=== PATIENT | female | born 1970 | race African-American/Black ===

== ENCOUNTER 2017-01-11 12:43 | Emergency (ER) | payer MEDICAID, OTHER ==
[~2017-01-11] VITALS: Ht 160 cm; Wt 98.0 kg
[~2017-01-11 12:43] MED LIST: SUMA25 PO
[2017-01-11 12:45] VITALS: BP 150/93; PULSE 74; RESP 15; TEMP 98.3; O2SAT 99
--- NOTE | 2017-01-11 12:51 | PD ---
Physical Exam Time Seen by Provider: 12:49 Narrative 46 y/o female presents for evaluation of 3 day duration of headache. Endorses mild nausea/vomiting associated with this. Vital signs reviewed. Seen at triage desk. Awaiting bed placement. Data Data Last Documented VS Vital Signs Date Time Temp Pulse Resp B/P Pulse Ox O2 Delivery O2 Flow Rate FiO2 01/11/17 12:45 98.3 74 15 150/93 99 MDM Medical Record Reviewed: Yes Supervised Visit with NAM: Mustapha Flores January 11, 2017 12:51
--- NOTE | 2017-01-11 13:43 | PD ---
HPI Chief Complaint: Headache Time Seen by Provider: 13:43 Travel History International Travel<30 days: No Contact w/Intl Traveler<30days: No Traveled to known affect area: No History of Present Illness HPI 46-year-old female came to the emergency room with history of headache for 3 days. He points her headache more to the left temporal area. No associated nausea or vomiting. No fever or chills. Vital signs were relatively stable. Patient says she used to get migraines many years ago up until this started again. No neurologic deficit. Patient does not radiate to any spot. No aggravating or relieving factors. Patient has been taking Advil at home for the pain. Patient said her pain was 7 out of 10 currently. [facility] Past Medical History Narrative Medical List of her past medical, surgical, social and family history was reviewed from the nursing note. Anemia: Yes Diminished Hearing: No Headaches: Yes Musculoskeletal: Yes (THORACIC AND LUMBAR INJURY FEW YEARS AGO ON THE JOB) Neurologic: Yes Immunizations Current: No ?: Not LMP: 01/08/17 : 6 Para: 6 Tubal Ligation: Yes Social History Alcohol Use: No Tobacco Use: No Substance Use: No Allergies-Medications (Allergen,Severity, Reaction): Coded Allergies: Amoxicillin (Verified Allergy, Severe, Anaphylaxis, 01/11/17) Iodine (Verified Allergy, Severe, RASH, 01/11/17) Peanut (Verified Allergy, Severe, SOB, 01/11/17) Penicillin (Verified Allergy, Severe, RASH, 01/11/17) Shellfish (Verified Allergy, Severe, RASH, 01/11/17) Comments List of her allergies reviewed from the nursing note. Reported Meds & Prescriptions Reported Meds & Active Scripts Active Imitrex 25 Mg Tab (Sumatriptan Succinate) 25 Mg Tab 25 Mg PO ONCE PRN Narrative Medication List of her home medications reviewed from the nursing note. Review of Systems Except as stated in HPI: all other systems reviewed are Neg Physical Exam Narrative GENERAL: Awake, alert, obese, no obvious distress SKIN: Focused skin assessment warm/dry. HEAD: Atraumatic. Normocephalic. EYES: Pupils equal and round. No scleral icterus. No injection or drainage. ENT: No nasal bleeding or discharge. Mucous membranes pink and moist. NECK: Trachea midline. No JVD. No signs of meningismus. CARDIOVASCULAR: Regular rate and rhythm. No murmur appreciated. RESPIRATORY: No accessory muscle use. Clear to auscultation. Breath sounds equal bilaterally. GASTROINTESTINAL: Abdomen soft, non-tender, nondistended. Hepatic and splenic margins not palpable. MUSCULOSKELETAL: No obvious deformities. No clubbing. No cyanosis. No edema. NEUROLOGICAL: Awake and alert. No obvious cranial nerve deficits. Motor grossly within normal limits. Normal speech. PSYCHIATRIC: Appropriate mood and affect; insight and judgment normal. Data Data Last Documented VS Vital Signs Date Time Temp Pulse Resp B/P Pulse Ox O2 Delivery O2 Flow Rate FiO2 01/11/17 13:49 69 16 162/94 100 Room Air 01/11/17 12:45 98.3 Orders Complete Blood Count With Diff (01/11/17 13:47) Basic Metabolic Panel (Bmp) (01/11/17 13:47) Ct Brain W/O Iv Contrast(Rout) (01/11/17 13:47) Ecg Monitoring (01/11/17 13:47) Iv Access Insert/Monitor (01/11/17 13:47) Oximetry (01/11/17 13:47) Sodium Chloride 0.9% Flush (Ns Flush) (01/11/17 14:00) Prochlorperazine Inj (Compazine Inj) (01/11/17 14:00) Sodium Chlor 0.9% 1000 Ml Inj (Ns 1000 M (01/11/17 13:47) Labs Laboratory Tests Test 01/11/17 13:58 White Blood Count 5.1 TH/MM3 Red Blood Count 4.30 MIL/MM3 Hemoglobin 11.1 GM/DL Hematocrit 33.7 % Mean Corpuscular Volume 78.2 FL Mean Corpuscular Hemoglobin 25.8 PG Mean Corpuscular Hemoglobin 33.0 % Concent Red Cell Distribution Width 14.8 % Platelet Count 338 TH/MM3 Mean Platelet Volume 8.5 FL Neutrophils (%) (Auto) 55.0 % Lymphocytes (%) (Auto) 35.2 % Monocytes (%) (Auto) 6.8 % Eosinophils (%) (Auto) 2.0 % Basophils (%) (Auto) 1.0 % Neutrophils # (Auto) 2.8 TH/MM3 Lymphocytes # (Auto) 1.8 TH/MM3 Monocytes # (Auto) 0.3 TH/MM3 Eosinophils # (Auto) 0.1 TH/MM3 Basophils # (Auto) 0.0 TH/MM3 CBC Comment DIFF FINAL Differential Comment Sodium Level 139 MEQ/L Potassium Level 3.9 MEQ/L Chloride Level 105 MEQ/L Carbon Dioxide Level 28.3 MEQ/L Anion Gap 6 MEQ/L Blood Urea Nitrogen 8 MG/DL Creatinine 0.86 MG/DL Estimat Glomerular Filtration 87 ML/MIN Rate Random Glucose 90 MG/DL Calcium Level 8.7 MG/DL MDM Medical Decision Making Medical Screen Exam Complete: Yes Emergency Medical Condition: Yes Medical Record Reviewed: Yes Differential Diagnosis Migraine headache, status migrainous, subarachnoid hemorrhage Narrative Course 2:57 PM blood test results of back and within normal limit. I have ordered a head CT and waiting for the CT to be done and resulted. Although my pretest probability for subarachnoid hemorrhage is very low. I went to reassess her but she is over at the CT currently. 3:[address] scan is within normal limits. I'll discharge her home. Patient told me her headache is down to 1 out of 10. Procedures EKG Prior to Arrival: No Diagnosis Primary Impression: Migraine headache Qualified Code: G43.911 - Intractable migraine with status migrainosus, unspecified migraine type Referrals: Primary Care Physician 3 days Additional Instructions: Please return to the ER if the condition worsens or any other new concerns. Otherwise follow-up with your primary care. Dietary restrictions including no wine, no chocolates, no cheese. Drink lots of fluid and keep herself hydrated. Med/Other Pt SpecificInfo: No Change to Meds Disposition: 01 DISCHARGE HOME Condition: Stable Kate Thomas MD January 11, 2017 13:43
[2017-01-11] MEDS ORDERED: SODIUM CHLOR 0.9% 1000 ML INJ 1,000 ML IV ONE (13:47)
[2017-01-11 13:49] VITALS: BP 162/94; PULSE 69; RESP 16; O2SAT 100
[2017-01-11] MEDS ORDERED: SODIUM CHLORIDE 0.9% FLUSH 10 ML FLUSH IVF PRN (14:00)
[2017-01-11] MEDS ORDERED: PROCHLORPERAZINE INJ 10 MG/2 ML VIAL IVP ONE (14:00)
[2017-01-11 14:27] LABS: AUTOMATED NEUTROPHIL # 2.8 TH/MM3 (1.8-7.7); EOSINOPHIL # 0.1 TH/MM3 (0-0.4); HEMATOCRIT 33.7 % (35.0-46.0); HEMO FLAGS DIFF FINAL; LYMPH % 35.2 % (9.0-44.0); LYMPHOCYTE # 1.8 TH/MM3 (1.0-4.8); MEAN CELL VOLUME 78.2 FL (80.0-100.0); MEAN CORPUSCULAR HEMOGLOBIN 25.8 PG (27.0-34.0); MONO % 6.8 % (0.0-8.0); PLATELET COUNT 338 TH/MM3 (150-450); RED CELL DISTRIBUTION WIDTH 14.8 % (11.6-17.2); WHITE BLOOD COUNT 5.1 TH/MM3 (4.0-11.0)
[2017-01-11 14:41] LABS: BICARBONATE 28.3 MEQ/L (21.0-32.0); POTASSIUM 3.9 MEQ/L (3.5-5.1)
--- NOTE | 2017-01-11 15:21 | RADRPT ---
EXAM DATE/TIME: 01/11/2017 14:57 [facility] COMPARISON: No previous studies available for comparison. INDICATIONS : Frontal Headache, nausea. RADIATION DOSE: 41.08 CTDIvol (mGy) MEDICAL HISTORY : None SURGICAL HISTORY : Tubal ligation. ENCOUNTER: Initial ACUITY: 3 days PAIN SCALE: 5/10 LOCATION: Bilateral cranial TECHNIQUE: Multiple contiguous axial images were obtained of the head. Using automated exposure control and adj ustment of the mA and/or kV according to patient size, radiation dose was kept as low as reasonably a chievable to obtain optimal diagnostic quality images. FINDINGS: CEREBRUM: The ventricles are normal for age. No evidence of midline shift, mass lesion, hemorrhage or acute in farction. No extra-axial fluid collections are seen. POSTERIOR FOSSA: The cerebellum and brainstem are intact. The 4th ventricle is midline. The cerebellopontine angle i s unremarkable. EXTRACRANIAL: The visualized portion of the orbits is intact. SKULL: The calvaria is intact. No evidence of skull fracture. CONCLUSION: Normal examination. Denzel Suárez MD on January 11, 2017 at 15:18 Board Certified Radiologist. This report was verified electronically.
== END 2017-01-11 16:26 | disposition home or self-care (01) ==
LOC: NEPD 12:43
DX: G43.911 Migraine, unspecified, intractable, with status migrainosus (principal); Z86.2 Personal history of diseases of the blood and blood-forming organs and certain disorders involving the immune mechanism; Z87.39 Personal history of other diseases of the musculoskeletal system and connective tissue; Z86.69 Personal history of other diseases of the nervous system and sense organs
CPT/HCPCS: 70450; 80048; 85025; 96361; 96374; 99284; J0780; J7030

== ENCOUNTER 2017-03-20 19:51 | Observation (INO) | payer MEDICAID ==
[~2017-03-20] VITALS: Ht 160 cm; Wt 103.0 kg
[~2017-03-20 19:51] MED LIST changes: +ADACINJ3 IM; +KETO2CRE TOPICAL
[2017-03-20 19:53] VITALS: BP 158/92; PULSE 88; RESP 16; TEMP 98.8; O2SAT 95
[2017-03-20] MEDS ORDERED: FERR200T PO (21:30)
[2017-03-20 21:31] VITALS: BP 136/83; PULSE 77; RESP 17; O2SAT 100
--- NOTE | 2017-03-20 21:56 | PD ---
HPI Chief Complaint: Chest Pain Time Seen by Provider: 21:56 Travel History International Travel<30 days: No Contact w/Intl Traveler<30days: No Traveled to known affect area: No History of Present Illness HPI 46-year-old female with no significant medical history presents to the emergency department for evaluation of a substernal chest pain, intermittently sharp since 5 PM this evening. Patient states she was doing nothing when this began. She had not recently eaten. Is not associated with shortness of breath , diaphoresis, nausea, or vomiting. Patient states over the last couple he she hasn't having some numbness in her right arm but this did not occur today when this pain began. Denies any recent illnesses, fever, or chills. PFSH Past Medical History Anemia: Yes Diminished Hearing: No Headaches: Yes Musculoskeletal: Yes (THORACIC AND LUMBAR INJURY FEW YEARS AGO ON THE JOB) Neurologic: Yes Immunizations Current: No Influenza Vaccination: No ?: Not LMP: 03/19/17 : 6 Para: 6 Tubal Ligation: Yes Past Surgical History Surgical History: No Previous Surgery Social History Alcohol Use: No Tobacco Use: No Substance Use: No Allergies-Medications (Allergen,Severity, Reaction): Coded Allergies: Amoxicillin (Verified Allergy, Severe, Anaphylaxis, 03/20/17) Iodine (Verified Allergy, Severe, RASH, 03/20/17) Peanut (Verified Allergy, Severe, SOB, 03/20/17) Penicillin (Verified Allergy, Severe, RASH, 03/20/17) Shellfish (Verified Allergy, Severe, RASH, 03/20/17) Reported Meds & Prescriptions Reported Meds & Active Scripts Active Reported Feosol (Ferrous Sulfate) 200 Mg Tab 200 Mg PO DAILY Review of Systems Except as stated in HPI: all other systems reviewed are Neg Physical Exam Narrative GENERAL: Well-nourished female patient in no acute distress SKIN: Focused skin assessment warm/dry. HEAD: Atraumatic. Normocephalic. EYES: Pupils equal and round. No scleral icterus. No injection or drainage. ENT: No nasal bleeding or discharge. Mucous membranes pink and moist. NECK: Trachea midline. No JVD. CARDIOVASCULAR: Regular rate and rhythm. No murmur appreciated. RESPIRATORY: No accessory muscle use. Clear to auscultation. Breath sounds equal bilaterally. GASTROINTESTINAL: Abdomen soft, non-tender, nondistended. Hepatic and splenic margins not palpable. MUSCULOSKELETAL: No obvious deformities. No clubbing. No cyanosis. No edema. NEUROLOGICAL: Awake and alert. No obvious cranial nerve deficits. Motor grossly within normal limits. Normal speech. PSYCHIATRIC: Appropriate mood and affect; insight and judgment normal. Data Data Last Documented VS Vital Signs Date Time Temp Pulse Resp B/P Pulse Ox O2 Delivery O2 Flow Rate FiO2 03/20/17 21:31 77 17 136/83 100 Room Air 03/20/17 19:53 98.8 Orders Electrocardiogram (03/20/17 21:55) Basic Metabolic Panel (Bmp) (03/20/17 21:55) Ckmb (Isoenzyme) Profile (03/20/17 21:55) Complete Blood Count With Diff (03/20/17 21:55) Magnesium (Mg) (03/20/17 21:55) Prothrombin Time / Inr (Pt) (03/20/17 21:55) Act Partial Throm Time (Ptt) (03/20/17 21:55) Troponin I (03/20/17 21:55) Lipase (03/20/17 21:55) Chest, Single Ap (03/20/17 21:55) Ecg Monitoring (03/20/17 21:55) Bilateral Bp Monitoring (03/20/17 21:55) Iv Access Insert/Monitor (03/20/17 21:55) Oximetry (03/20/17 21:55) Oxygen Administration (03/20/17 21:55) Sodium Chloride 0.9% Flush (Ns Flush) (03/20/17 22:00) Ed Urine Pregnancytest Poc (03/20/17 21:55) Aspirin Chew (Aspirin Chew) (03/21/17 09:00) CKMB (03/20/17 22:05) CKMB% (03/20/17 22:05) Admit Order (Ed Use Only) (03/20/17 23:16) Activity Bed Rest With Brp (03/20/17 23:16) Vital Signs (Adult) Q4H (03/20/17 23:16) Cardiac Rhythm .As Directed (03/20/17 23:16) Notify Dr: Other .PRN (03/20/17 23:16) Notify Parameters (03/20/17 23:16) Resp Oxygen Nasal Cannula (03/20/17 ) Diet Npo (03/21/17 Breakfast) Ckmb (Isoenzyme) Profile (03/21/17 01:00) Ckmb (Isoenzyme) Profile (03/21/17 04:00) Troponin I (03/21/17 01:00) Troponin I (03/21/17 04:00) Electrocardiogram (03/21/17 00:30) Electrocardiogram (03/21/17 03:30) ^ Obtain (03/20/17 23:16) Sodium Chloride 0.9% Flush (Ns Flush) (03/20/17 23:30) Sodium Chloride 0.9% Flush (Ns Flush) (03/21/17 09:00) Acetaminophen (Tylenol) (03/20/17 23:30) Ondansetron Inj (Zofran Inj) (03/20/17 23:30) [employer] Officer / Telemetry ADELSO.Q8H (03/20/17 23:16) Daquan Bilateral/Knee High ADELSO.QSHIFT (03/20/17 23:16) Labs Laboratory Tests Test 03/20/17 22:05 White Blood Count 8.3 TH/MM3 Red Blood Count 4.44 MIL/MM3 Hemoglobin 11.0 GM/DL Hematocrit 35.0 % Mean Corpuscular Volume 78.8 FL Mean Corpuscular Hemoglobin 24.7 PG Mean Corpuscular Hemoglobin 31.4 % Concent Red Cell Distribution Width 15.7 % Platelet Count 320 TH/MM3 Mean Platelet Volume 8.8 FL Neutrophils (%) (Auto) 64.0 % Lymphocytes (%) (Auto) 26.2 % Monocytes (%) (Auto) 6.9 % Eosinophils (%) (Auto) 2.4 % Basophils (%) (Auto) 0.5 % Neutrophils # (Auto) 5.3 TH/MM3 Lymphocytes # (Auto) 2.2 TH/MM3 Monocytes # (Auto) 0.6 TH/MM3 Eosinophils # (Auto) 0.2 TH/MM3 Basophils # (Auto) 0.0 TH/MM3 CBC Comment DIFF FINAL Differential Comment Prothrombin Time 10.1 SEC Prothromb Time International 0.9 RATIO Ratio Activated Partial 27.5 SEC Thromboplast Time Sodium Level 140 MEQ/L Potassium Level 3.6 MEQ/L Chloride Level 106 MEQ/L Carbon Dioxide Level 25.6 MEQ/L Anion Gap 8 MEQ/L Blood Urea Nitrogen 11 MG/DL Creatinine 0.90 MG/DL Estimat Glomerular Filtration 82 ML/MIN Rate Random Glucose 77 MG/DL Calcium Level 8.7 MG/DL Magnesium Level 2.0 MG/DL Total Creatine Kinase 201 U/L Creatine Kinase MB LESS THAN 0.5 NG/ML Creatine Kinase MB % 0.2 % Troponin I LESS THAN 0.02 NG/ML Lipase 187 U/L MDM Medical Decision Making Medical Screen Exam Complete: Yes Emergency Medical Condition: Yes Medical Record Reviewed: Yes Differential Diagnosis Chest wall pain versus pleuritic pain versus visceral pain Narrative Course 46 year-old female presents to emergency department for evaluation chest pain. Patient has no cardiac history. She appears well and without distress. EKG is unremarkable. CBC is without acute concern. BMP is without acute concern. Troponin is less than 0.02. I have discussed the patient with mitral physician agrees the patient would benefit from obstipation the chest pain center. Plan is discussed with the patient and she is in agreement with this plan of care. Diagnosis Primary Impression: Chest pain Qualified Code: R07.9 - Chest pain, unspecified type Admitting Information Admitting Physician Requests: Observation Condition: Stable Iza Zepeda Mar 20, 2017 21:56
[2017-03-20] MEDS ORDERED: SODIUM CHLORIDE 0.9% FLUSH 10 ML FLUSH IVF PRN (22:00)
--- NOTE | 2017-03-20 22:28 | RADRPT ---
EXAM DATE/TIME: 03/20/2017 22:06 [facility] COMPARISON: CHEST SINGLE AP, January 20, 2015, 16:02. INDICATIONS : Chest pain. MEDICAL HISTORY : None. SURGICAL HISTORY : Tubal ligation. ENCOUNTER: Initial ACUITY: 1 day PAIN SCORE: 6/10 LOCATION: Bilateral chest FINDINGS: A single view of the chest demonstrates the lungs to be symmetrically aerated without evidence of mas s, infiltrate or effusion. The cardiomediastinal contours are unremarkable. Osseous structures are intact. CONCLUSION: No acute disease. Real Branch MD FACR on March 20, 2017 at 22:26 Board Certified Radiologist. This report was verified electronically.
[2017-03-20 22:44] LABS: AUTOMATED NEUTROPHIL # 5.3 TH/MM3 (1.8-7.7); BASOPHIL % 0.5 % (0.0-2.0); EOSINOPHIL # 0.2 TH/MM3 (0-0.4); EOSINOPHIL % 2.4 % (0.0-4.0); HEMO FLAGS DIFF FINAL; LYMPH % 26.2 % (9.0-44.0); LYMPHOCYTE # 2.2 TH/MM3 (1.0-4.8); MEAN CELL VOLUME 78.8 FL (80.0-100.0); MEAN CORPUSCULAR HEMOGLOBIN 24.7 PG (27.0-34.0); MEAN CORPUSCULAR HGB CONC 31.4 % (32.0-36.0); MONO % 6.9 % (0.0-8.0); PLATELET COUNT 320 TH/MM3 (150-450); RED BLOOD COUNT 4.44 MIL/MM3 (4.00-5.30); RED CELL DISTRIBUTION WIDTH 15.7 % (11.6-17.2); WHITE BLOOD COUNT 8.3 TH/MM3 (4.0-11.0)
[2017-03-20 22:56] LABS: ANION GAP 8 MEQ/L (5-15); BICARBONATE 25.6 MEQ/L (21.0-32.0); BLOOD UREA NITROGEN 11 MG/DL (7-18); CHLORIDE 106 MEQ/L (98-107); GLOMERULAR FILTRATION RATE 82 ML/MIN (>89); POTASSIUM 3.6 MEQ/L (3.5-5.1); SODIUM (NA) 140 MEQ/L (136-145)
[2017-03-20 23:01] LABS: CREATINE KINASE 201 U/L (26-192)
[2017-03-20 23:02] LABS: APTT (PATIENT) 27.5 SEC (24.3-30.1); INTERNATIONAL NORMALIZED RATIO 0.9 RATIO; PROTHROMBIN TIME - PATIENT 10.1 SEC (9.8-11.6)
[2017-03-20 23:13] LABS: CKMB LESS THAN 0.5 NG/ML (0.5-3.6)
[2017-03-20] MEDS ORDERED: SODIUM CHLORIDE 0.9% FLUSH 10 ML FLUSH IV FLUSH PRN (23:30)
[2017-03-20] MEDS ORDERED: ONDANSETRON HCL 4 MG/2 ML VIAL IV PRN (23:30)
[2017-03-20] MEDS ORDERED: ACETAMINOPHEN 500 MG CPLT PO PRN (23:30)
[2017-03-21 00:14] VITALS: BP 114/79
[2017-03-21 01:16] LABS: CREATINE KINASE 170 U/L (26-192)
[2017-03-21 01:17] VITALS: BP 107/56; PULSE 65; RESP 18; TEMP 98.1; O2SAT 100
[2017-03-21 01:28] LABS: CKMB LESS THAN 0.5 NG/ML (0.5-3.6)
[2017-03-21 04:14] LABS: CREATINE KINASE 154 U/L (26-192)
[2017-03-21 04:26] LABS: CKMB LESS THAN 0.5 NG/ML (0.5-3.6)
[2017-03-21 05:04] VITALS: BP 112/76; PULSE 65; RESP 18; TEMP 97.9; O2SAT 100
[2017-03-21 06:20] VITALS: O2SAT 100
[2017-03-21 08:00] VITALS: PULSE 67
[2017-03-21 08:16] VITALS: BP 112/71; PULSE 68; RESP 16; TEMP 98; O2SAT 100
[2017-03-21] MEDS ORDERED: SODIUM CHLORIDE 0.9% FLUSH 10 ML FLUSH IV FLUSH SCH (09:00)
[2017-03-21] MEDS ORDERED: ASPIRIN 81 MG CHEW TAB CHEW SCH (09:00)
--- NOTE | 2017-03-21 10:25 | HHI.HP ---
HPI Primary Care Physician Ivana Beatty MD Chief Complaint Chest pain History of Present Illness This is a 46-year-old female that presents to ED via private vehicle complaining of developing a chest discomfort yesterday around 5:00 wall driving her son to work. She states initial episode was in the center of her chest. It was a cramping sensation last about a minute later reoccurred about 5 or 6 minutes later while still driving. She states that discomfort is still present. Has never left. Certain movements seem to worsen the discomfort. Denies shortness breath, nausea, or diaphoresis with the symptoms. The discomfort does not radiate. Denies recent illness. Denies fevers or chills. Cannot recall any trauma that may have caused the discomfort. Review of Systems General: Patient denies fevers, chills recent, and recent travel HEENT: Patient denies headache, sore throat, difficulty swallowing. Cardiovascular: Has the chest discomfort as mentioned above. Denies sensation of heart beating rapidly or irregularly. No syncope. Denies diaphoresis. Respiratory: Denies shortness of breath or inspirational chest discomfort. Denies coughing wheezing or hemoptysis. GI: Patient denies nausea, vomiting, diarrhea, abdominal pain, bloody stools. Musculoskeletal: Patient denies joint pain or edema. Denies calf pain or edema. Neurovascular: Patient denies numbness, tingling, weakness in extremities. Denies headache. Endocrine: Denies polyuria and polydipsia. Hematologic: Denies easy bruising. Skin: Denies rash or itching. Past Family Social History Allergies: Coded Allergies: Amoxicillin (Verified Allergy, Severe, Anaphylaxis, 03/20/17) Iodine (Verified Allergy, Severe, RASH, 03/20/17) Peanut (Verified Allergy, Severe, SOB, 03/20/17) Penicillin (Verified Allergy, Severe, RASH, 03/20/17) Shellfish (Verified Allergy, Severe, RASH, 03/20/17) Past Medical History Anemia. Denies hypertension, hyperlipidemia, diabetes, and CAD. Past Surgical History Tubal ligation. Reported Medications Reported Meds & Active Scripts Active Reported Feosol (Ferrous Sulfate) 200 Mg Tab 200 Mg PO DAILY Active Ordered Medications Current Medications Medications (Trade) Dose Ordered Sig/Juan Route Start Time Stop Time Status Last Admin (NS Flush) 2 ml UNSCH PRN IVF 03/20/17 22:00 (Aspirin Chew) 162 mg DAILY CHEW 03/21/17 09:00 03/21/17 08:18 (NS Flush) 2 ml UNSCH PRN IV FLUSH 03/20/17 23:30 (NS Flush) 2 ml BID IV FLUSH 03/21/17 09:00 03/21/17 08:18 (Tylenol) 500 mg Q4H PRN PO 03/20/17 23:30 (Zofran Inj) 4 mg Q6H PRN IV 03/20/17 23:30 Family History Denies family history of CAD. Social History Patient is a lifetime nonsmoker. Denies alcohol or illicit drugs. 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 Physical Exam Vital Signs Vital Signs Date Time Temp Pulse Resp B/P Pulse Ox O2 Delivery O2 Flow Rate FiO2 03/21/17 08:16 98.0 68 16 112/71 100 03/21/17 08:00 67 03/21/17 06:20 100 21 03/21/17 05:04 97.9 65 18 112/76 100 03/21/17 01:17 98.1 65 18 107/56 100 03/21/17 00:14 66 18 114/79 100 03/20/17 21:31 77 17 136/83 100 Room Air 03/20/17 21:31 100 Room Air 03/20/17 19:53 98.8 88 16 158/92 95 Room Air Physical Exam GENERAL: This is a well-nourished, well-developed patient, in no apparent distress. Patient speaks in clear complete sentences. Patient is pleasant. HEENT: Head is atraumatic and normocephalic. Neck is supple without lymphadenopathy and trachea is midline. No JVD or carotid bruits. CARDIOVASCULAR: Regular rate and rhythm without murmurs, gallops, or rubs. RESPIRATORY: Clear to auscultation. Breath sounds equal bilaterally. No wheezes , rales, or rhonchi. Chest wall is tender just left of the sternum and beneath the breast. This is worsening the discomfort she has been having. No use of accessory muscles. GASTROINTESTINAL: Abdomen is nontender, nondistended. Abdomen soft. No obvious pulsatile mass or bruit. No CVA tenderness. Strong femoral pulses bilaterally. Normal bowel sounds in all quadrants. MUSCULOSKELETAL: Patient is moving upper and lower extremities freely. No calf tenderness or edema, no Homans sign. Strong pulses in upper and lower extremities. NEUROLOGICAL: Patient is alert and oriented. Cranial nerves 2-12 are grossly intact. No focal deficits and speech is clear. SKIN: No rash and turgor is normal. Laboratory Laboratory Tests Test 03/20/17 03/21/17 03/21/17 22:05 00:45 03:40 White Blood Count 8.3 Red Blood Count 4.44 Hemoglobin 11.0 Hematocrit 35.0 Mean Corpuscular Volume 78.8 Mean Corpuscular Hemoglobin 24.7 Mean Corpuscular Hemoglobin 31.4 Concent Red Cell Distribution Width 15.7 Platelet Count 320 Mean Platelet Volume 8.8 Neutrophils (%) (Auto) 64.0 Lymphocytes (%) (Auto) 26.2 Monocytes (%) (Auto) 6.9 Eosinophils (%) (Auto) 2.4 Basophils (%) (Auto) 0.5 Neutrophils # (Auto) 5.3 Lymphocytes # (Auto) 2.2 Monocytes # (Auto) 0.6 Eosinophils # (Auto) 0.2 Basophils # (Auto) 0.0 CBC Comment DIFF FINAL Differential Comment Prothrombin Time 10.1 Prothromb Time International 0.9 Ratio Activated Partial 27.5 Thromboplast Time Sodium Level 140 Potassium Level 3.6 Chloride Level 106 Carbon Dioxide Level 25.6 Anion Gap 8 Blood Urea Nitrogen 11 Creatinine 0.90 Estimat Glomerular Filtration 82 Rate Random Glucose 77 Calcium Level 8.7 Magnesium Level 2.0 Total Creatine Kinase 201 170 154 Creatine Kinase MB LESS THAN 0.5 LESS THAN 0.5 LESS THAN 0.5 Creatine Kinase MB % 0.2 Troponin I LESS THAN 0.02 LESS THAN 0.02 LESS THAN 0.02 Lipase 187 Result Diagram: 03/20/17220403/20/172204 Imaging Last 24 hours Impressions Chest X-Ray 03/20/172154 Signed Impressions: Service Date/Time: Monday, March 20, 2017 22:06 - CONCLUSION: No acute disease. Real Branch MD FACR Course EKGs and been sinus rhythm without significant ST segment depressions or elevations. Assessment and Plan Assessment and Plan * Atypical chest pain: Patient has had serial cardiac enzymes and EKGs for ruling out purposes. She will be seen by Dr. Pace cardiology and the chest pain center and will undergo a Ronal protocol ETT. She'll be discharged home if the stress test is nonischemic with instructions to follow-up with her primary care physician. Patient is stable at this time. She is agreeable to this plan. Ari Mendoza Mar 21, 2017 10:25
--- NOTE | 2017-03-21 10:42 | PD.CARD.PN ---
Subjective Subjective Remarks CARDIOLOGY ATTENDING NOTE S: 46 yo obese female noted sudden onset of chest pain last evening while driving. She initially though this was a cramp but when it didn't go away she became concerned and came to ED. No SOB, NV or diaphoresis. Pain has gradually diminished since she has been here but still has a bit. O: Obese WNWD Neck supple no JVD, M OR BRUIT CHEST Tender at right costo chondral jct but not severe CV no GRM EXT no CCE LAB neg x3 CXR neg EKG no ischemia A: Atypical CP low probability of cardiac P: RO with protocol ETT Discharge if neg Objective Vital Signs / I&O Vital Signs Date Time Temp Pulse Resp B/P Pulse Ox O2 Delivery O2 Flow Rate FiO2 03/21/17 08:16 98.0 68 16 112/71 100 03/21/17 08:00 67 03/21/17 06:20 100 21 03/21/17 05:04 97.9 65 18 112/76 100 03/21/17 01:17 98.1 65 18 107/56 100 03/21/17 00:14 66 18 114/79 100 03/20/17 21:31 77 17 136/83 100 Room Air 03/20/17 21:31 100 Room Air 03/20/17 19:53 98.8 88 16 158/92 95 Room Air I/O 03/20/17 03/20/17 03/20/17 03/21/17 03/21/17 03/21/17 07:00 15:00 23:00 07:00 15:00 23:00 Intake Total 10 ml Balance 10 ml Intake Oral 10 ml # Voids 1 Laboratory Laboratory Tests Test 03/20/17 03/21/17 03/21/17 22:05 00:45 03:40 White Blood Count 8.3 TH/MM3 Red Blood Count 4.44 MIL/MM3 Hemoglobin 11.0 GM/DL Hematocrit 35.0 % Mean Corpuscular Volume 78.8 FL Mean Corpuscular Hemoglobin 24.7 PG Mean Corpuscular Hemoglobin 31.4 % Concent Red Cell Distribution Width 15.7 % Platelet Count 320 TH/MM3 Mean Platelet Volume 8.8 FL Neutrophils (%) (Auto) 64.0 % Lymphocytes (%) (Auto) 26.2 % Monocytes (%) (Auto) 6.9 % Eosinophils (%) (Auto) 2.4 % Basophils (%) (Auto) 0.5 % Neutrophils # (Auto) 5.3 TH/MM3 Lymphocytes # (Auto) 2.2 TH/MM3 Monocytes # (Auto) 0.6 TH/MM3 Eosinophils # (Auto) 0.2 TH/MM3 Basophils # (Auto) 0.0 TH/MM3 CBC Comment DIFF FINAL Differential Comment Prothrombin Time 10.1 SEC Prothromb Time International 0.9 RATIO Ratio Activated Partial 27.5 SEC Thromboplast Time Sodium Level 140 MEQ/L Potassium Level 3.6 MEQ/L Chloride Level 106 MEQ/L Carbon Dioxide Level 25.6 MEQ/L Anion Gap 8 MEQ/L Blood Urea Nitrogen 11 MG/DL Creatinine 0.90 MG/DL Estimat Glomerular Filtration 82 ML/MIN Rate Random Glucose 77 MG/DL Calcium Level 8.7 MG/DL Magnesium Level 2.0 MG/DL Total Creatine Kinase 201 U/L 170 U/L 154 U/L Creatine Kinase MB LESS THAN 0.5 LESS THAN 0.5 LESS THAN 0.5 NG/ML NG/ML NG/ML Creatine Kinase MB % 0.2 % Troponin I LESS THAN 0.02 LESS THAN 0.02 LESS THAN 0.02 NG/ML NG/ML NG/ML Lipase 187 U/L Nguyễn Pace MD Mar 21, 2017 10:42
--- NOTE | 2017-03-21 11:38 | HHI.DCPOC ---
Discharge Care Plan Diagnosis: (1) Chest pain Goals to Promote Your Health * To prevent worsening of your condition and complications * To maintain your health at the optimal level Directions to Meet Your Goals Take your medications as prescribed Follow your dietary instruction Follow activity as directed Keep your appointments as scheduled Take your immunizations and boosters as scheduled If your symptoms worsen call your PCP, if no PCP go to Urgent Care Center or Emergency Room Smoking is Dangerous to Your Health. Avoid second hand smoke Call the 24-hour hour crisis hotline for domestic abuse at Ari Mendoza Mar 21, 2017 11:38
--- NOTE | 2017-03-21 15:25 | EKG ---
Date Performed: 03/21/2017 Time Performed: 03:35:20 PTAGE: 46 years EKG: Sinus rhythm NORMAL ECG NO SIG CHANGE PREVIOUS TRACING : 03/21/2017 01.26 DOCTOR: Nguyễn Pace Interpretating Date/Time 03/21/2017 15:24:08
--- NOTE | 2017-03-21 15:27 | EKG ---
Date Performed: 03/21/2017 Time Performed: 01:26:20 PTAGE: 46 years EKG: Sinus rhythm NORMAL ECG PREVIOUS TRACING : 03/20/2017 21.31 DOCTOR: Nguyễn Pace Interpretating Date/Time 03/21/2017 15:26:04
--- NOTE | 2017-03-21 15:29 | EKG ---
Date Performed: 03/20/2017 Time Performed: 21:31:08 PTAGE: 46 years EKG: Sinus rhythm NORMAL ECG PREVIOUS TRACING : 07/17/2015 14.18 DOCTOR: Nguyễn Pace Interpretating Date/Time 03/21/2017 15:28:30
--- NOTE | 2017-03-21 15:37 | TR ---
Date Performed: 03/21/2017 Time Performed: 10:58:37 DOCTOR: Nguyễn Pace DRUG LIST: CLINICAL HISTORY: CHEST PAIN REASON FOR TEST: REASON FOR ENDING: OBSERVATION: CONCLUSION: LANE PROTOCOL. NO CP OR SOB. TEST STOPPED AFTER EXCEEDING GOAL HR SECONDARY TO LEG FATIGUE.Maximum MY=299 % Max HR Achieved=98.0% Maximum ZH=160/76 Total Exercise Time=6:00 COMMENTS: NEG ETT WITH LOW PROBABILITY OF SIG CAD CAUSE OF CURRENT SYMPTOMS
== END 2017-03-21 13:12 | disposition home or self-care (01) ==
LOC: NEPC 19:51 → NEDA 23:20 → NEPGCP 03-21 00:25
PROVIDERS: ADMIT Internal Medicine Cardiovascular Disease; ATTEND Internal Medicine Cardiovascular Disease
DX: R07.89 Other chest pain (principal); D64.9 Anemia, unspecified; E66.9 Obesity, unspecified
CPT/HCPCS: 71010; 80048; 82550; 82552; 83690; 83735; 84484; 84703; 85025; 85610; 85730; 93005; 93017; 99285; G0378

== ENCOUNTER 2017-04-28 00:16 | Observation (INO) | payer MEDICAID ==
[~2017-04-28] VITALS: Ht 160 cm; Wt 97.5 kg
[2017-04-28] VITALS (10 sets, daily range): BP systolic 96–126; BP diastolic 55–85; PULSE 67–92; RESP 16–17; TEMP 98–98.2; O2SAT 97–100
[~2017-04-28 00:16] MED LIST changes: -ADACINJ3 IM; +FERR200T PO; -KETO2CRE TOPICAL; -SUMA25 PO
--- NOTE | 2017-04-28 01:05 | PD ---
HPI Chief Complaint: Chest Pain Time Seen by Provider: 01:04 Travel History International Travel<30 days: No Contact w/Intl Traveler<30days: No Traveled to known affect area: No History of Present Illness HPI C/O CP, MIDSTERNAL, NONRAD, 03/20, INTERMITTENTLY OCCURRING SINCE 2199, DESCRIBED A PRESSURE, ..no alleviating/aggravating factors PT DENIES SMOKING, DENIES ANY MEDICAL HX EXCEPT ANEMIA, ONLY SURGERY BTL. PCP DR JACOBSON [facility] Past Medical History Anemia: Yes Diminished Hearing: No Headaches: Yes Musculoskeletal: Yes (THORACIC AND LUMBAR INJURY FEW YEARS AGO ON THE JOB) Neurologic: Yes Immunizations Current: No Tetanus Vaccination: > 5 Years Influenza Vaccination: No ?: Not LMP: 04/22/17 : 6 Para: 6 Tubal Ligation: Yes Social History Alcohol Use: No Tobacco Use: No Substance Use: No Allergies-Medications (Allergen,Severity, Reaction): Coded Allergies: amoxicillin (Unverified Allergy, Severe, Anaphylaxis, 04/28/17) iodine (Unverified Allergy, Severe, RASH, 04/28/17) ipratropium (Unverified Allergy, Severe, SOB, 04/28/17) peanut (Verified Allergy, Severe, Anaphylaxis, 04/28/17) penicillin G (Unverified Allergy, Severe, RASH, 04/28/17) potassium iodide (Unverified Allergy, Severe, RASH, 04/28/17) povidone-iodine (Unverified Allergy, Severe, RASH, 04/28/17) shellfish derived (Unverified Allergy, Severe, RASH, 04/28/17) sodium iodide (Unverified Allergy, Severe, RASH, 04/28/17) sodium iodide (Unverified Allergy, Severe, RASH, 04/28/17) Reported Meds & Prescriptions Reported Meds & Active Scripts Active Reported Feosol (Ferrous Sulfate) 200 Mg Tab 200 Mg PO DAILY Review of Systems Except as stated in HPI: all other systems reviewed are Neg Cardiovascular: Positive: Chest Pain or Discomfort Physical Exam Narrative GENERAL: SKIN: Warm and dry. HEAD: Atraumatic. Normocephalic. EYES: Pupils equal and round. No scleral icterus. No injection or drainage. ENT: No nasal bleeding or discharge. Mucous membranes pink and moist. NECK: Trachea midline. No JVD. CARDIOVASCULAR: Regular rate and rhythm. RESPIRATORY: No accessory muscle use. Clear to auscultation. Breath sounds equal bilaterally. GASTROINTESTINAL: Abdomen soft, non-tender, nondistended. MUSCULOSKELETAL: Extremities without clubbing, cyanosis, or edema. No obvious deformities. NEUROLOGICAL: Awake and alert. No obvious cranial nerve deficits. Motor grossly within normal limits. Five out of 5 muscle strength in the arms and legs. Normal speech. PSYCHIATRIC: Appropriate mood and affect; insight and judgment normal. Data Data Last Documented VS Orders Orders Electrocardiogram (04/28/17 01:06) B-Type Natriuretic Peptide (04/28/17 01:06) Ckmb (Isoenzyme) Profile (04/28/17 01:06) Complete Blood Count With Diff (04/28/17 01:06) Comprehensive Metabolic Panel (04/28/17 01:06) Prothrombin Time / Inr (Pt) (04/28/17 01:06) Act Partial Throm Time (Ptt) (04/28/17 01:06) Troponin I (04/28/17 01:06) Lipase (04/28/17 01:06) Chest, Single Ap (04/28/17 01:06) Ecg Monitoring (04/28/17 01:06) Bilateral Bp Monitoring (04/28/17 01:06) Iv Access Insert/Monitor (04/28/17 01:06) Oximetry (04/28/17 01:06) Oxygen Administration (04/28/17 01:06) CKMB (04/28/17 01:10) CKMB% (04/28/17 01:10) Admit Order (Ed Use Only) (04/28/17 01:57) Activity Bed Rest With Brp (04/28/17 01:58) Vital Signs (Adult) Q4H (04/28/17 01:58) Cardiac Rhythm .As Directed (04/28/17 01:58) Notify Dr: Other .PRN (04/28/17 01:58) Notify Parameters (04/28/17 01:58) Resp Oxygen Nasal Cannula (04/28/17 ) Ckmb (Isoenzyme) Profile (04/28/17 01:58) Ckmb (Isoenzyme) Profile (04/28/17 04:58) Troponin I (04/28/17 01:58) Troponin I (04/28/17 04:58) Electrocardiogram (04/28/17 01:58) Electrocardiogram (04/28/17 04:58) ^ Obtain (04/28/17 01:58) Sodium Chlor 0.9% 1000 Ml Inj (Ns 1000 M (04/28/17 01:58) Acetamin-Hydrocod 325-7.5 Mg ([place] 7.5 (04/28/17 02:00) Morphine Inj (Morphine Inj) (04/28/17 02:00) Ondansetron Inj (Zofran Inj) (04/28/17 02:00) Famotidine (Pepcid) (04/28/17 09:00) Nitroglycerin Sl (Nitrostat Sl) (04/28/17 02:00) Aspirin (Aspirin) (04/28/17 09:00) Dtp Operator / Telemetry ADELSO.Q8H (04/28/17 01:58) Vte Prophylaxis Not Indicated (04/28/17 01:58) Labs Laboratory Tests Test 04/28/17 01:10 White Blood Count 7.4 TH/MM3 Red Blood Count 4.26 MIL/MM3 Hemoglobin 10.9 GM/DL Hematocrit 33.4 % Mean Corpuscular Volume 78.5 FL Mean Corpuscular Hemoglobin 25.7 PG Mean Corpuscular Hemoglobin Concent 32.7 % Red Cell Distribution Width 15.0 % Platelet Count 353 TH/MM3 Mean Platelet Volume 8.4 FL Neutrophils (%) (Auto) 71.2 % Lymphocytes (%) (Auto) 22.4 % Monocytes (%) (Auto) 5.1 % Eosinophils (%) (Auto) 0.9 % Basophils (%) (Auto) 0.4 % Neutrophils # (Auto) 5.3 TH/MM3 Lymphocytes # (Auto) 1.7 TH/MM3 Monocytes # (Auto) 0.4 TH/MM3 Eosinophils # (Auto) 0.1 TH/MM3 Basophils # (Auto) 0.0 TH/MM3 CBC Comment DIFF FINAL Differential Comment Prothrombin Time 10.7 SEC Prothromb Time International Ratio 1.0 RATIO Activated Partial Thromboplast Time 28.5 SEC Blood Urea Nitrogen 12 MG/DL Creatinine 1.06 MG/DL Random Glucose 104 MG/DL Total Protein 7.4 GM/DL Albumin 3.2 GM/DL Calcium Level 8.2 MG/DL Alkaline Phosphatase 97 U/L Aspartate Amino Transf (AST/SGOT) 13 U/L Alanine Aminotransferase (ALT/SGPT) 13 U/L Total Bilirubin 0.4 MG/DL Sodium Level 139 MEQ/L Potassium Level 3.4 MEQ/L Chloride Level 105 MEQ/L Carbon Dioxide Level 27.3 MEQ/L Anion Gap 7 MEQ/L Estimat Glomerular Filtration Rate 68 ML/MIN Total Creatine Kinase 123 U/L Creatine Kinase MB LESS THAN 0.5 NG/ML Troponin I LESS THAN 0.02 NG/ML B-Type Natriuretic Peptide LESS THAN 2 PG/ML Lipase 161 U/L MDM Medical Decision Making Medical Screen Exam Complete: Yes Emergency Medical Condition: Yes Medical Record Reviewed: Yes Interpretation(s) NSR 86, IRBBB, NO STEMI PATTERN, J POINT ELEVATION NOTED Differential Diagnosis STEMI V NONSTEMI V PNA V PE V PTX Narrative Course DURING WORKUP EKG NEG OR STEMI PATTERN, FIRST TROP NEG, NL CBC AND NL CMP....FINDINGS D/W ADMITTING MD, AND ABOUT POS DDIMER, ADMITTING WILL PERFORM VQ SCAN DURING OBSERVATION PERIOD.... DUE TO IODINE ALLERGY. Diagnosis Primary Impression: CP R/O John Garduno MD Apr 28, 2017 01:05
--- NOTE | 2017-04-28 01:32 | RADRPT ---
EXAM DATE/TIME: 04/28/2017 01:21 [facility] COMPARISON: CHEST SINGLE AP, March 20, 2017, 22:06. INDICATIONS : Mid sternal chest pain MEDICAL HISTORY : None. SURGICAL HISTORY : Tubal ligation. ENCOUNTER: Initial ACUITY: 2 days PAIN SCORE: 7/10 LOCATION: Bilateral chest FINDINGS: A single view of the chest demonstrates the lungs to be symmetrically aerated without evidence of mas s, infiltrate or effusion. Minimal atelectatic changes just above the right hemidiaphragm medially. The cardiomediastinal contours are unremarkable. Osseous structures are intact. CONCLUSION: Minimal atelectatic changes in the medial right base. Lungs are otherwise clear. Aguilar Bey MD on April 28, 2017 at 1:29 Board Certified Radiologist. This report was verified electronically.
[2017-04-28 01:36] LABS: AUTOMATED NEUTROPHIL # 5.3 TH/MM3 (1.8-7.7); BASOPHIL % 0.4 % (0.0-2.0); EOSINOPHIL # 0.1 TH/MM3 (0-0.4); EOSINOPHIL % 0.9 % (0.0-4.0); HEMATOCRIT 33.4 % (35.0-46.0); HEMO FLAGS DIFF FINAL; LYMPH % 22.4 % (9.0-44.0); LYMPHOCYTE # 1.7 TH/MM3 (1.0-4.8); MEAN CELL VOLUME 78.5 FL (80.0-100.0); MEAN CORPUSCULAR HEMOGLOBIN 25.7 PG (27.0-34.0); MEAN CORPUSCULAR HGB CONC 32.7 % (32.0-36.0); MONO % 5.1 % (0.0-8.0); NEUT % 71.2 % (16.0-70.0); PLATELET COUNT 353 TH/MM3 (150-450); RED BLOOD COUNT 4.26 MIL/MM3 (4.00-5.30); WHITE BLOOD COUNT 7.4 TH/MM3 (4.0-11.0)
[2017-04-28 01:46] LABS: ALT (GPT) 13 U/L (10-53); ANION GAP 7 MEQ/L (5-15); AST (GOT) 13 U/L (15-37); BICARBONATE 27.3 MEQ/L (21.0-32.0); BLOOD UREA NITROGEN 12 MG/DL (7-18); CHLORIDE 105 MEQ/L (98-107); GLOMERULAR FILTRATION RATE 68 ML/MIN (>89); POTASSIUM 3.4 MEQ/L (3.5-5.1); SODIUM (NA) 139 MEQ/L (136-145)
[2017-04-28 01:47] LABS: APTT (PATIENT) 28.5 SEC (24.3-30.1); PROTHROMBIN TIME - PATIENT 10.7 SEC (9.8-11.6)
[2017-04-28 01:50] LABS: ALKALINE PHOSPHATASE 97 U/L (45-117); CREATINE KINASE 123 U/L (26-192); TOTAL BILIRUBIN ADULT 0.4 MG/DL (0.2-1.0)
[2017-04-28] MEDS ORDERED: MORPHINE SULFATE 4 MG/ML INJ IV PRN (02:00)
[2017-04-28] MEDS ORDERED: ACETAMINOPHEN/HYDROcodone 325 MG/7.5 MG TAB PO PRN (02:00)
[2017-04-28] MEDS ORDERED: NITROGLYCERIN 0.4 MG SL 25 TABS/BTL SL PRN (02:00)
[2017-04-28] MEDS ORDERED: ONDANSETRON HCL 4 MG/2 ML VIAL IV PRN (02:00)
[2017-04-28 02:02] LABS: CKMB LESS THAN 0.5 NG/ML (0.5-3.6)
[2017-04-28] MEDS: SODIUM CHLOR 0.9% 1000 ML INJ 1,000 ML IV SCH ×2 (04:31→11:58)
[2017-04-28 05:43] LABS: CREATINE KINASE 113 U/L (26-192)
[2017-04-28 05:56] LABS: CKMB LESS THAN 0.5 NG/ML (0.5-3.6)
[2017-04-28 08:01] LABS: CREATINE KINASE 105 U/L (26-192)
[2017-04-28 08:13] LABS: CKMB LESS THAN 0.5 NG/ML (0.5-3.6)
[2017-04-28] MEDS ORDERED: ASPIRIN 325 MG TAB PO SCH (09:00)
[2017-04-28] MEDS ORDERED: FAMOTIDINE 20 MG TAB PO SCH (09:00)
[2017-04-28 09:11] LABS: BETA HCG QUANT LESS THAN 1 MIU/ML (0-5)
--- NOTE | 2017-04-28 10:16 | HHI.HP ---
[facility] Primary Care Physician Audrey Dale MD Chief Complaint Chest pain History of Present Illness This is a 46-year-old female that presents to ED with a clean of a left-sided sharp discomfort in her chest also feels as a cramping sensation. It began last night around 10:00 last 3 hours. Rates the pain as "bad." She is also short of breath. No nausea diaphoresis. Upon reviewing records she had a recent stress test. On March 31, 2017 showed a nonischemic Ronal protocol ETT. Denies recent illness. Denies fevers or chills. Review of Systems General: Patient denies fevers, chills recent, and recent travel HEENT: Patient denies headache, sore throat, difficulty swallowing. Cardiovascular: Has the chest discomfort as mentioned above. Denies sensation of heart beating rapidly or irregularly. No syncope. Denies diaphoresis. Respiratory: She was short of breath. Denies inspirational chest discomfort. Denies coughing wheezing or hemoptysis. GI: Patient denies nausea, vomiting, diarrhea, abdominal pain, bloody stools. Musculoskeletal: Patient denies joint pain or edema. Denies calf pain or edema. Neurovascular: Patient denies numbness, tingling, weakness in extremities. Denies headache. Endocrine: Denies polyuria and polydipsia. Hematologic: Denies easy bruising. Skin: Denies rash or itching. Past Family Social History Allergies: Coded Allergies: amoxicillin (Unverified Allergy, Severe, Anaphylaxis, 04/28/17) iodine (Unverified Allergy, Severe, RASH, 04/28/17) ipratropium (Unverified Allergy, Severe, SOB, 04/28/17) peanut (Verified Allergy, Severe, Anaphylaxis, 04/28/17) penicillin G (Unverified Allergy, Severe, RASH, 04/28/17) potassium iodide (Unverified Allergy, Severe, RASH, 04/28/17) povidone-iodine (Unverified Allergy, Severe, RASH, 04/28/17) shellfish derived (Unverified Allergy, Severe, RASH, 04/28/17) sodium iodide (Unverified Allergy, Severe, RASH, 04/28/17) sodium iodide (Unverified Allergy, Severe, RASH, 04/28/17) Past Medical History Anemia. Denies hypertension, hyperlipidemia, diabetes, and known CAD. Past Surgical History Noncontributory. Reported Medications Reported Meds & Active Scripts Active Reported Feosol (Ferrous Sulfate) 200 Mg Tab 200 Mg PO DAILY Active Ordered Medications Current Medications Medications (Trade) Dose Ordered Sig/Juan Route Start Time Stop Time Status Last Admin (NS 1000 ml Inj) 1,000 ml @ 100 mls/hr Q10H IV 04/28/17 01:58 04/28/17 04:31 ([place] 7.5-325 Mg) 1 tab Q4H PRN PO 04/28/17 02:00 04/28/17 03:20 (Morphine Inj) 2 mg Q4H PRN IV 04/28/17 02:00 (Zofran Inj) 4 mg Q6H PRN IV 04/28/17 02:00 (Pepcid) 20 mg BID PO 04/28/17 09:00 (Nitrostat Sl) 0.4 mg Q5M PRN SL 04/28/17 02:00 (Aspirin) 325 mg DAILY PO 04/28/17 09:00 Family History Denies family history of CAD. Social History Denies tobacco abuse. Denies alcohol illicit drug use. Physical Exam Vital Signs Vital Signs Date Time Temp Pulse Resp B/P Pulse Ox O2 Delivery O2 Flow Rate FiO2 04/28/17 08:21 98 21 04/28/17 07:23 98.1 67 16 111/63 100 04/28/17 07:00 70 04/28/17 05:15 98.2 78 17 100/61 97 04/28/17 02:37 100 21 04/28/17 01:09 88 16 114/71 100 Room Air 04/28/17 01:09 100 Room Air 04/28/17 01:00 92 16 114/74 98 Room Air 04/28/17 00:18 98.1 87 16 126/85 99 Room Air Physical Exam GENERAL: This is a well-nourished, well-developed patient, in no apparent distress. Patient speaks in clear complete sentences. Patient is pleasant. HEENT: Head is atraumatic and normocephalic. Neck is supple without lymphadenopathy and trachea is midline. No JVD or carotid bruits. CARDIOVASCULAR: Regular rate and rhythm without murmurs, gallops, or rubs. RESPIRATORY: Clear to auscultation. Breath sounds equal bilaterally. No wheezes , rales, or rhonchi. Chest wall is nontender. No use of accessory muscles. GASTROINTESTINAL: Abdomen is nontender, nondistended. Abdomen soft. No obvious pulsatile mass or bruit. No CVA tenderness. Strong femoral pulses bilaterally. Normal bowel sounds in all quadrants. MUSCULOSKELETAL: Patient is moving upper and lower extremities freely. No calf tenderness or edema, no Homans sign. Strong pulses in upper and lower extremities. NEUROLOGICAL: Patient is alert and oriented. Cranial nerves 2-12 are grossly intact. No focal deficits and speech is clear. SKIN: No rash and turgor is normal. Laboratory Laboratory Tests Test 04/28/17 04/28/17 04/28/17 01:10 04:50 07:00 White Blood Count 7.4 Red Blood Count 4.26 Hemoglobin 10.9 Hematocrit 33.4 Mean Corpuscular Volume 78.5 Mean Corpuscular Hemoglobin 25.7 Mean Corpuscular Hemoglobin 32.7 Concent Red Cell Distribution Width 15.0 Platelet Count 353 Mean Platelet Volume 8.4 Neutrophils (%) (Auto) 71.2 Lymphocytes (%) (Auto) 22.4 Monocytes (%) (Auto) 5.1 Eosinophils (%) (Auto) 0.9 Basophils (%) (Auto) 0.4 Neutrophils # (Auto) 5.3 Lymphocytes # (Auto) 1.7 Monocytes # (Auto) 0.4 Eosinophils # (Auto) 0.1 Basophils # (Auto) 0.0 CBC Comment DIFF FINAL Differential Comment Prothrombin Time 10.7 Prothromb Time International 1.0 Ratio Activated Partial 28.5 Thromboplast Time Sodium Level 139 Potassium Level 3.4 Chloride Level 105 Carbon Dioxide Level 27.3 Anion Gap 7 Blood Urea Nitrogen 12 Creatinine 1.06 Estimat Glomerular Filtration 68 Rate Random Glucose 104 Calcium Level 8.2 Total Bilirubin 0.4 Aspartate Amino Transf 13 (AST/SGOT) Alanine Aminotransferase 13 (ALT/SGPT) Alkaline Phosphatase 97 Total Creatine Kinase 123 113 105 Creatine Kinase MB LESS THAN 0.5 LESS THAN 0.5 LESS THAN 0.5 Troponin I LESS THAN 0.02 LESS THAN 0.02 LESS THAN 0.02 B-Type Natriuretic Peptide LESS THAN 2 Total Protein 7.4 Albumin 3.2 Lipase 161 Human Chorionic Gonadotropin, LESS THAN 1 Quant Result Diagram: 04/28/17 0110 04/28/17 0110 Imaging Last 48 hours Impressions Chest X-Ray 04/28/17 0106 Signed Impressions: Service Date/Time: Friday, April 28, 2017 01:21 - CONCLUSION: Minimal atelectatic changes in the medial right base. Lungs are otherwise clear. Aguilar Bey MD Course EKG is sinus rhythm without significant ST segment depressions or elevations. Assessment and Plan Assessment and Plan * Atypical chest pain: Patient had serial cardiac enzymes and EKGs for ruling out purposes. She was seen by Dr. Kelechi Chavez of cardiology and the chest pain center. She had a nonischemic stress test less than a month ago and there will be no further cardiac testing as this does not appear to be of cardiac etiology. We will get a d-dimer and patient likely be discharged home if that is normal. Ari Mendoza Apr 28, 2017 10:16
--- NOTE | 2017-04-28 12:57 | RADRPT ---
EXAM DATE/TIME: 04/28/2017 12:19 [facility] COMPARISON: CHEST SINGLE AP, April 28, 2017, 1:21. INDICATIONS : Shortness of breath with left sided chest pain for one day. DOSE: 8.6 mCi Tc99m MAA IV 0.48 mCi Tc99m DTPA aerosol MEDICAL HISTORY : None SURGICAL HISTORY : Tubal ligation. ENCOUNTER: Initial ACUITY: 1 day PAIN SCALE: 2/10 LOCATION: Left chest TECHNIQUE: Following five minutes of tidal breathing of DTPA aerosol, planar images of the lungs were performed in eight projections. The patient was then injected with MAA, and eight-view perfusion scan was perf ormed. FINDINGS: There is a homogeneous pattern of aerosol delivery to the periphery of both lungs. No focal ventilat ory defects are seen. The perfusion lung scan demonstrates a homogenous pattern of uptake in both lungs. No segmental or s ubsegmental defects are seen. CONCLUSION: Low probability for pulmonary embolism. Esequiel Osuna MD on April 28, 2017 at 12:55 Board Certified Radiologist. This report was verified electronically.
--- NOTE | 2017-04-28 13:02 | HHI.DCPOC ---
Discharge Care Plan Diagnosis: (1) Chest pain Goals to Promote Your Health * To prevent worsening of your condition and complications * To maintain your health at the optimal level Directions to Meet Your Goals Take your medications as prescribed Follow your dietary instruction Follow activity as directed Keep your appointments as scheduled Take your immunizations and boosters as scheduled If your symptoms worsen call your PCP, if no PCP go to Urgent Care Center or Emergency Room Smoking is Dangerous to Your Health. Avoid second hand smoke Call the 24-hour hour crisis hotline for domestic abuse at Ari Mendoza Apr 28, 2017 13:02
--- NOTE | 2017-04-28 13:58 | EKG ---
Date Performed: 04/28/2017 Time Performed: 00:50:15 PTAGE: 46 years EKG: Sinus rhythm INCOMPLETE RIGHT BUNDLE BRANCH BLOCK BORDERLINE ECG PREVIOUS TRACING : 03/21/2017 03.35 Since previous tracing, no significant change noted DOCTOR: Kelechi Chavez Interpretating Date/Time 04/28/2017 13:56:48
--- NOTE | 2017-04-28 13:59 | EKG ---
Date Performed: 04/28/2017 Time Performed: 04:52:28 PTAGE: 46 years EKG: Sinus rhythm LOW QRS VOLTAGE IN PRECORDIAL LEADS POSSIBLE RIGHT VENTRICULAR CONDUCTION DELAY BORDERLINE ECG PREVIOUS TRACING : 03/21/2017 03.35 Since previous tracing, no significant change noted DOCTOR: Kelechi Chavez Interpretating Date/Time 04/28/2017 13:57:22
--- NOTE | 2017-04-28 14:00 | EKG ---
Date Performed: 04/28/2017 Time Performed: 07:16:21 PTAGE: 46 years EKG: Sinus rhythm INCOMPLETE RIGHT BUNDLE BRANCH BLOCK BORDERLINE ECG NO PREVIOUS TRACING DOCTOR: Kelechi Chavez Interpretating Date/Time 04/28/2017 13:57:42
== END 2017-04-28 14:43 | disposition home or self-care (01) ==
LOC: NEPE 00:16 → NEDA 01:59 → NEPGCP 04:26
DX: R07.89 Other chest pain (principal); I45.10 Unspecified right bundle-branch block; D64.9 Anemia, unspecified; Z79.899 Other long term (current) drug therapy; R06.02 Shortness of breath
CPT/HCPCS: 71010; 78582; 80053; 82550; 82552; 83690; 83880; 84484; 84702; 85025; 85379; 85610; 85730; 93005; 96360; 99285; A9540; A9567; G0378; J7030

== ENCOUNTER 2018-01-26 18:30 | Emergency (ER) | END 2018-01-27 | disposition home or self-care (01) | DX: M25.561 Pain in right knee (principal); G89.29 Other chronic pain | CPT/HCPCS: 73564; 96372; 99283; J1885 ==